=== PATIENT | male | born 1930 | race Caucasian/White ===

== ENCOUNTER 2017-02-07 12:52 | Inpatient (IN) | payer MEDICARE ==
--- NOTE | 2017-02-07 13:14 | ED ---
General Adult HPI - General Chief complaint: Neuro Symptoms/Deficit Stated complaint: poss TIA Time Seen by Provider: 02/07/17 13:00 Source: family, RN notes reviewed Mode of arrival: wheelchair Limitations: no limitations - History of Present Illness Initial comments: This is an 86-year-old male who is brought in by his daughter. Patient was having expressive aphasia starting at 12:30 last time he was seen normal was 9: 30. Daughter states that his symptoms have gotten considerably better at this time. But a timeout was done interviewing the patient daughter stated the patient was back to his neurologic baseline. Patient denies any headache patient denies numbness weakness. Patient denies any chest pain palpitations difficulty breathing shortest breath per patient denies any numbness weakness. Patient denies any recent fever chills or cough. Patient denies abdominal pain patient denies nausea vomiting diarrhea. - Related Data Home Medications Medication Instructions Recorded Confirmed No Known Home Medications [No 02/07/17 02/07/17 Known Home Medications] Allergies Allergy/AdvReac Type Severity Reaction Status Date / Time No Known Allergies Allergy Verified 02/07/17 13:38 Review of Systems ROS Statement: Those systems with pertinent positive or pertinent negative responses have been documented in the HPI. ROS Other: All systems not noted in ROS Statement are negative. Past Medical History Past Medical History: Dementia, Deep Vein Thrombosis (DVT) History of Any Multi-Drug Resistant Organisms: None Reported Past Surgical History: No Surgical Hx Reported Past Psychological History: No Psychological Hx Reported Smoking Status: Former smoker Past Alcohol Use History: Daily Past Drug Use History: None Reported General Exam - General Exam Comments Initial Comments: GENERAL: Patient is well-developed and well-nourished. Patient is nontoxic and well- hydrated and is in no acute distress. ENT: Neck is soft and supple. No significant lymphadenopathy is noted. Oropharynx is clear. Moist mucous membranes. Neck has full range of motion without eliciting any pain. EYES: The sclera were anicteric and conjunctiva were pink and moist. Extraocular movements were intact and pupils were equal round and reactive to light. Eyelids were unremarkable. PULMONARY: Unlabored respirations. Good breath sounds bilaterally. No audible rales rhonchi or wheezing was noted. CARDIOVASCULAR: There is a regular rate and rhythm without any murmurs gallops or rubs. ABDOMEN: Soft and nontender with normal bowel sounds. No palpable organomegaly was noted. There is no palpable pulsatile mass. SKIN: Skin is clear with no lesions or rashes and otherwise unremarkable. NEUROLOGIC: Patient is alert and oriented and 2. Cranial nerves II through XII are grossly intact. Motor and sensory are also intact. Normal speech, volume and content. Symmetrical smile. Cerebellar exam grossly intact. MUSCULOSKELETAL: Normal extremities with adequate strength and full range of motion. No lower extremity swelling or edema. No calf tenderness. LYMPHATICS: No significant lymphadenopathy is noted PSYCHIATRIC: Normal psychiatric evaluation. Normal interpersonal interactions appears functionally intact in deals appropriately with others. No signs of depression. No signs of anxiety. Limitations: no limitations Course Vital Signs 02/07/17 02/07/17 02/07/17 12:55 13:45 13:49 Temperature 97.8 F Pulse Rate 72 64 Respiratory 20 18 Rate Blood Pressure 151/80 140/84 143/87 O2 Sat by Pulse 96 Oximetry 02/07/17 02/07/17 14:03 14:37 Temperature 97.6 F Pulse Rate 60 64 Respiratory 16 16 Rate Blood Pressure 137/84 154/77 O2 Sat by Pulse 95 95 Oximetry Medical Decision Making - Medical Decision Making EKG shows a normal sinus rhythm at [address] interval 146 QRS on a 14 QT interval 4:30 QTC is 440 per patient's EKG shows no ST segment elevation or depression there is no T-wave abnormalities noted. Computed tomography scan showed no acute normalities. I spoke with the neuro interventional list he wanted Keppra 1000 iv wanted a liter of fluid aspirin and Lipitor all of which were done. I also ordered a CT on his instruction and he read the CTA is normal. I spoke with Dr. Desai he agreed to admit the patient admitted the patient I wrote admitting orders. I consult the neurology - Lab Data Result diagrams: 02/07/17 14:00 02/07/17 14:00 Lab Results 02/07/17 02/07/17 02/07/17 Range/Units 13:36 13:37 14:00 WBC (3.8-10.6) k/uL RBC (4.30-5.90) m/uL Hgb (13.0-17.5) gm/dL Hct (39.0-53.0) % MCV (80.0-100.0) fL MCH (25.0-35.0) pg MCHC (31.0-37.0) g/dL RDW (11.5-15.5) % Plt Count (150-450) k/uL Neutrophils % % Lymphocytes % % Monocytes % % Eosinophils % % Basophils % % Neutrophils # (1.3-7.7) k/uL Lymphocytes # (1.0-4.8) k/uL Monocytes # (0-1.0) k/uL Eosinophils # (0-0.7) k/uL Basophils # (0-0.2) k/uL PT (9.0-12.0) sec INR (<1.1) APTT (22.0-30.0) sec Sodium (137-145) mmol/L Potassium (3.5-5.1) mmol/L Chloride (98-107) mmol/L Carbon Dioxide (22-30) mmol/L Anion Gap mmol/L BUN (9-20) mg/dL Creatinine (0.66-1.25) mg/dL Est GFR (MDRD) Af Amer (>60 ml/min/1.73 sqM) Est GFR (MDRD) Non-Af (>60 ml/min/1.73 sqM) Glucose (74-99) mg/dL POC Glucose (mg/dL) <20 L 91 (75-99) mg/dL POC Glu Trimming Operator ID Bowling, Liliam Bowling, Liliam Calcium (8.4-10.2) mg/dL Total Bilirubin (0.2-1.3) mg/dL AST (17-59) U/L ALT (21-72) U/L Alkaline Phosphatase (38-126) U/L Total Creatine Kinase 322 H (55-170) U/L CK-MB (CK-2) 6.0 H* (0.0-2.4) ng/mL CK-MB (CK-2) Rel Index 1.9 Troponin I <0.012 (0.000-0.034) ng/mL Total Protein (6.3-8.2) g/dL Albumin (3.5-5.0) g/dL Serum Alcohol mg/dL 02/07/17 02/07/17 02/07/17 Range/Units 14:00 14:00 14:00 WBC 5.6 (3.8-10.6) k/uL RBC 4.45 (4.30-5.90) m/uL Hgb 13.9 (13.0-17.5) gm/dL Hct 41.3 (39.0-53.0) % MCV 92.8 (80.0-100.0) fL MCH 31.2 (25.0-35.0) pg MCHC 33.6 (31.0-37.0) g/dL RDW 13.7 (11.5-15.5) % Plt Count 219 (150-450) k/uL Neutrophils % 52 % Lymphocytes % 32 % Monocytes % 7 % Eosinophils % 5 % Basophils % 1 % Neutrophils # 2.9 (1.3-7.7) k/uL Lymphocytes # 1.8 (1.0-4.8) k/uL Monocytes # 0.4 (0-1.0) k/uL Eosinophils # 0.3 (0-0.7) k/uL Basophils # 0.1 (0-0.2) k/uL PT 10.4 (9.0-12.0) sec INR 1.0 (<1.1) APTT 22.5 (22.0-30.0) sec Sodium 141 (137-145) mmol/L Potassium 4.1 (3.5-5.1) mmol/L Chloride 108 H (98-107) mmol/L Carbon Dioxide 25 (22-30) mmol/L Anion Gap 8 mmol/L BUN 23 H (9-20) mg/dL Creatinine 1.09 (0.66-1.25) mg/dL Est GFR (MDRD) Af Amer >60 (>60 ml/min/1.73 sqM) Est GFR (MDRD) Non-Af >60 (>60 ml/min/1.73 sqM) Glucose 98 (74-99) mg/dL POC Glucose (mg/dL) (75-99) mg/dL POC Glu Trimming Operator ID Calcium 9.3 (8.4-10.2) mg/dL Total Bilirubin 0.7 (0.2-1.3) mg/dL AST 31 (17-59) U/L ALT 30 (21-72) U/L Alkaline Phosphatase 53 (38-126) U/L Total Creatine Kinase (55-170) U/L CK-MB (CK-2) (0.0-2.4) ng/mL CK-MB (CK-2) Rel Index Troponin I (0.000-0.034) ng/mL Total Protein 6.7 (6.3-8.2) g/dL Albumin 3.8 (3.5-5.0) g/dL Serum Alcohol <10 mg/dL Disposition Clinical Impression: Cerebrovascular accident Disposition: ADMITTED IP TO THIS HOSP Referrals: Rancho Summers MD [Primary Care Provider] - 1-2 days Time of Disposition: 15:13
[2017-02-07 13:40] LABS: Glucose,Whole Blood 91 mg/dL (75-99)
[2017-02-07 13:40] LABS: Glucose,Whole Blood <20 mg/dL (75-99)
--- NOTE | 2017-02-07 14:00 | CT ---
EXAMINATION TYPE: CT brain wo con DATE OF EXAM: 02/07/2017 1:38 PM COMPARISON: MRI brain 31 October 2015, CT facial bones 22 March 2013 HISTORY: Neuro deficits CT DLP: 1072.30 mGycm Automated exposure control for dose reduction was used. FINDINGS: There is no acute intracranial hemorrhage, mass effect, or midline shift identified. The ventricles and sulci are within normal limits in size. Periventricular white matter shows patchy low attenuatio n compatible with patient's demyelinating disease seen on previous exam. Cerebral vascular calcificat ions are present. High density within the posterior maxillary sinus on the left is unerupted tooth. T he globes are intact and the visualized mastoid air cells are clear. IMPRESSION: No acute abnormality is evident, follow-up as indicated. Findings in the left maxillary s inus are stable.
[2017-02-07] MEDS ORDERED: RX INFO: IV CONTRAST WAS GIVEN 1 EACH MISC MISCELLANE PRN (14:05)
[2017-02-07] MEDS ORDERED: levETIRAcetam IV 1,000 MG in SALINE 1 100ML.BAG IVPB STA (14:08)
[2017-02-07] MEDS ORDERED: SODIUM CHLORIDE 0.9% 1,000 ML IV ONE (14:08)
[2017-02-07 14:15] LABS: Basophils # (A) 0.1 k/uL (0-0.2); Basophils % (A) 1 %; CH 32.1; CHCM 34.7; Eosinophils # (A) 0.3 k/uL (0-0.7); Eosinophils % (A) 5 %; HCT 41.3 % (39.0-53.0); HDW 2.65; HGB 13.9 gm/dL (13.0-17.5); Luc # (Auto) 0.21; Luc % (Auto) 4; Lymphocytes # (A) 1.8 k/uL (1.0-4.8); Lymphocytes % (A) 32 %; MCH 31.2 pg (25.0-35.0); MCHC 33.6 g/dL (31.0-37.0); MCV 92.8 fL (80.0-100.0); Mean Platelet Volume 6.6; Monocytes # (A) 0.4 k/uL (0-1.0); Monocytes % (A) 7 %; Neutrophils # (A) 2.9 k/uL (1.3-7.7); Neutrophils % (A) 52 %; RBC 4.45 m/uL (4.30-5.90); RDW 13.7 % (11.5-15.5); WBC 5.6 k/uL (3.8-10.6); WBC (Perox) 5.85
[2017-02-07 14:26] LABS: ALT 30 U/L (21-72); AST 31 U/L (17-59); Alcohol <10 mg/dL; Alkaline Phosphatase 53 U/L (38-126); Anion Gap 8 mmol/L; Blood Urea Nitrogen 23 mg/dL (9-20); Calcium 9.3 mg/dL (8.4-10.2); Carbon Dioxide 25 mmol/L (22-30); Chloride 108 mmol/L (98-107); Glucose 98 mg/dL (74-99); Non-African American GFR(MDRD) >60 (>60 ml/min/1.73 sqM); Potassium 4.1 mmol/L (3.5-5.1); Sodium 141 mmol/L (137-145); Total Bilirubin 0.7 mg/dL (0.2-1.3); Total Protein 6.7 g/dL (6.3-8.2)
[2017-02-07 14:31] LABS: Partial Thromboplastin Time 22.5 sec (22.0-30.0); Prothrombin Time 10.4 sec (9.0-12.0)
[2017-02-07 14:40] LABS: Creatine Kinase 322 U/L (55-170)
[2017-02-07 14:52] LABS: Troponin I <0.012 ng/mL (0.000-0.034)
--- NOTE | 2017-02-07 14:55 | XR ---
EXAMINATION TYPE: XR chest 2V DATE OF EXAM: 02/07/2017 2:48 PM COMPARISON: Prior chest x-ray 16 January 2013 HISTORY: Altered mental status, weakness TECHNIQUE: Frontal and lateral views of the chest are obtained. FINDINGS: There is no focal air space opacity, pleural effusion, or pneumothorax seen. Prominent jamee ng volume may be indicative of underlying COPD. The cardiac silhouette size is enlarged. There are ov erlying cardiac leads. The aorta is dense. The osseous structures are intact. IMPRESSION: Cardiomegaly. Patient is rotated which may accentuate the appearance.
[2017-02-07] MEDS ORDERED: ATORVASTATIN 80 MG TAB PO STA (15:01)
[2017-02-07] MEDS ORDERED: ASPIRIN 81 MG CHEW PO STA (15:01)
--- NOTE | 2017-02-07 15:24 | CT ---
CTA head and neck HISTORY: Speech difficulty Helical acquisition from the thoracic aorta through the brain following dynamic administration of 65 cc Omni 350 IV. Three-dimensional reconstructions performed on an alternate workstation Transverse aorta, left and right common carotid, left and right subclavian, and innominate arteries a re patent. Internal and external carotid arteries are patent, as no significant stenosis of the proxi mal internal carotid arteries. Atheromatous changes are present at the carotid bifurcations. Vertebra l arteries are also patent. The [place] is patent. Anterior and posterior circulation is noted, vertebral arteries are c odominant. There is no evident aneurysm, no filling defect. No stenosis or vascular malformation. Emphysematous changes are present in the upper lobes, there is likely some pulmonary fibrosis. Degene rative disc changes in the visualized spine. IMPRESSION: No abnormality evident to account for patient's symptoms.
[2017-02-07 16:43] VITALS: BMI 24.3
--- NOTE | 2017-02-07 16:56 | US ---
EXAMINATION TYPE: US carotid duplex BILAT DATE OF EXAM: 02/07/2017 3:41 PM COMPARISON: Prior carotid Doppler 21 October 2015 CLINICAL HISTORY: Stenosis. possible TIA, patient having difficulty speaking EXAM MEASUREMENTS: RIGHT: Peak Systolic Velocity (PSV) cm/sec ----- Right CCA: 58.1 ----- Right ICA: 72.3 ----- Right ECA: 66.2 ICA/CCA ratio: 1.2 RIGHT: End Diastole cm/sec ----- Right CCA: 16.4 ----- Right ICA: 20.9 ----- Right ECA: 8.6 LEFT: Peak Systolic Velocity (PSV) cm/sec ----- Left CCA: 61.0 ----- Left ICA: 73.5 ----- Left ECA: 60.1 ICA/CCA ratio: 1.2 LEFT: End Diastole cm/sec ----- Left CCA: 13.9 ----- Left ICA: 26.3 ----- Left ECA: 6.0 VERTEBRALS (direction of flow): Right Vertebral: Antegrade Left Vertebral: Antegrade No significant stenosis seen, no elevated velocities, bilateral plaque noted Grayscale, color Doppler, spectral Doppler imaging performed of the carotid arteries IMPRESSION: No hemodynamic significant stenosis of the proximal internal carotid arteries bilaterall y by Doppler criteria, an indirect measurement of carotid stenosis
[2017-02-07] MEDS ORDERED: QUEtiapine 25 MG TAB PO SCH (21:30)
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
[2017-02-07] MEDS ORDERED: HALOPERIDOL LACTATE 5 MG/ML 1 ML VIAL IM ONE (22:00)
[2017-02-08] MEDS: HALOPERIDOL LACTATE 5 MG/ML 1 ML VIAL IVP PRN ×2 (01:21→19:26)
[2017-02-08 07:07] LABS: Cholesterol 211 mg/dL (<200); HDL Cholesterol 62 mg/dL (40-60); Triglycerides 84 mg/dL (<150)
--- NOTE | 2017-02-08 07:38 | MR ---
EXAMINATION TYPE: MR brain wo con DATE OF EXAM: 02/08/2017 7:00 AM COMPARISON: MRI brain 10/31/2015, CT brain 02/07/2017 HISTORY: Acute expressive aphasia CONTRAST: Performed utilizing 0 mL intravenous MultiHance gadolinium contrast. TECHNIQUE: Multiplanar, multiecho imaging on a 3.0 Yara magnet is performed through the brain. Stud y is performed within 24 hours of arrival to the hospital. Fast protocol was utilized due to patient condition. The craniovertebral junction is normal. The pituitary is normal. Diffusion-weighted imaging is performed. No abnormal hyperintensity is present to suggest an acute i ntracranial infarct or acute ischemic change. There are confluent areas of periventricular white matter hyper intensity, compatible with chronic wh ite matter ischemic changes. These areas appear stable from 10/31/2015. Ventricles and sulci are prominent for the patient age. IMPRESSIONS: 1. Atrophy with periventricular and deep white matter ischemic type changes. 2. Findings appear stable from MRI 10/31/2015.
[2017-02-08] MEDS: ATORVASTATIN 80 MG TAB PO SCH (08:14)
[2017-02-08] MEDS: ASPIRIN 325 MG TAB PO SCH (08:14)
--- NOTE | 2017-02-08 17:15 | HP ---
DATE OF ADMISSION: Patient is a very pleasant 86-year-old gentleman; unable to provide much history for me. Patient is alert and oriented times close to 3. He was sent in here because of his speech and language problems, although his speech is okay now. He is not able to articulate very well because of absence of his dentures, he says. Patient apparently was mixing and jumbling his words ( ) because of which patient was sent in here. Patient had a CT angiogram and CT of the brain; negative for any acute problems. MRI was obtained which did not show any significant abnormality, either. Patient although is not clear why he is here. He believes he had a stroke, because of which he was admitted to hospital. MRI showed atrophy with periventricular white matter ischemic changes which appeared to be chronic. Patient appears to have dementia which appears to be moderate in nature. Will get a mini-mental status examination. Apparently patient is quite weak with generalized weakness, although his strength in bilateral lower extremities is equal. No focal neurological deficits were appreciated. REVIEW OF SYSTEMS: CONSTITUTIONAL: No fever, no malaise, no fatigue. HEENT: No recent visual problems or hearing problems. Denied any sore throat. CARDIOVASCULAR: No chest pain, orthopnea, PND, no palpitations, no syncope. PULMONARY: No shortness of breath, no cough, no hemoptysis. GASTROINTESTINAL: No diarrhea, no nausea, no vomiting, no abdominal pain. Normoactive bowel sounds. NEUROLOGICAL: As described in HPI. HEMATOLOGICAL: Denies any bleeding or petechiae. GENITOURINARY: Denies any burning micturition, frequency, or urgency. MUSCULOSKELETAL/RHEUMATOLOGICAL: Denies any joint pain, swelling, or any muscle pain. ENDOCRINE: Denies any polyuria or polydipsia. The rest of the 14 point review of systems is negative. PAST MEDICAL HISTORY: 1. Dementia. 2. DVT in the past, not on anticoagulation. 3. Patient had part of a finger amputated. SOCIAL HISTORY: Denied any smoking, alcohol abuse or any drug abuse. HOME MEDICATIONS: None. ALLERGIES: NONE. PHYSICAL EXAMINATION: VITAL SIGNS: Temperature 97.1, pulse of 65, respiratory rate of 16, blood pressure 126/74. Saturating at 94% on room air. GENERAL: The patient is alert and oriented x3, not in any acute distress. Well developed, well nourished. HEENT: Pupils are round and equally reacting to light. EOMI. No scleral icterus. No conjunctival pallor. Normocephalic, atraumatic. No pharyngeal erythema. No thyromegaly. CARDIOVASCULAR: S1 and S2 present. No murmurs, rubs, or gallops. PULMONARY: Chest is clear to auscultation, no wheezing or crackles. ABDOMEN: Soft, nontender, nondistended, normoactive bowel sounds. No palpable organomegaly. MUSCULOSKELETAL: No joint swelling or deformity. EXTREMITIES: No cyanosis, clubbing, or pedal edema. NEUROLOGICAL: Gross neurological examination did not reveal any focal deficits. SKIN: No rashes. LABORATORY DATA: CBC, CMP are essentially within normal limits. Patient's LDL is elevated to 132. Patient is on atorvastatin at this point of time. ASSESSMENT AND PLAN: 1. Expressive aphasia, although workup is negative, including MRI; unsure of the exact etiology; may have had a transient ischemic attack. Further evaluation as per Neurology. 2. Generalized weakness and dementia. Get PT and OT evaluation. Make sure patient does not have any rehab requirements. 3. 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 Patient will benefit from aspirin and a statin. Appears to have moderate dementia. Will get a mini-mental status exam. 4. Hyperlipidemia. Patient will be followed by Dr. Rancho Summers from tomorrow.
--- NOTE | 2017-02-08 22:46 | P.PN ---
Subjective This patient is an 86 year old male being evaluated for possible TIA vs. stroke. He is resting and denies any new symptoms. He was able to get MRI Brain today and it is negative for any acute stroke. MRI revealed atrophy with periventricular deep white matter ischemic changes. This would be consistent for the patient's age. No evidence of acute stroke was noted. Patient seems to be doing better overall since admission. Patient does have history of underlying dementia which is felt to be moderate in degree. His [place] history suggests probable TIA. Would recommend ongoing current treatment for his TIA. His overall prognosis at this time remains guarded. We will continue close neurological follow-up for the patient. His overall prognosis at this time remains guarded. Objective - Vital Signs Vital signs: Vital Signs Temp 96.7 F L 02/08/17 16:00 Pulse 62 02/08/17 16:00 Resp 16 02/08/17 16:00 BP 160/90 02/08/17 16:00 Pulse Ox 96 02/08/17 16:00 Intake & Output 02/08/17 02/08/17 02/09/17 06:59 18:59 06:59 Intake Total 200 500 Output Total 1 Balance 199 500 Intake: Oral 200 500 Output: Urine 1 Other: Voiding Method Toilet Toilet # Voids 1 3 - Exam Physical Examination: PHYSICAL EXAMINATION: Patient is resting comfortably in bed. VITAL SIGNS: Blood pressure is [160/90]. Heart rate is [62]. Respiration is [16] . Temperature is [97.0]. HEENT: Head is atraumatic, neck is supple, there were no carotid bruits. CHEST: Lungs are clear to auscultation and percussion. CARDIAC: S1, S2 normal rate and rhythm. There is no murmur. ABDOMEN: Soft and nontender. Bowel sounds are present. EXTREMITIES: There is no pedal edema. Peripheral pulses are present. Neurological examination: Patient has a nonfocal neurological examination today. Exam remains unchanged from yesterday. - Labs CBC & Chem 7: 02/07/17 14:00 02/07/17 14:00 Labs: Abnormal Lab Results - Last 24 Hours (Table) 02/08/17 Range/Units 05:58 Cholesterol 211 H (<200) mg/dL LDL Cholesterol, Calc 132 H (0-99) mg/dL HDL Cholesterol 62 H (40-60) mg/dL Assessment and Plan (1) Left acute arterial ischemic stroke, MCA (middle cerebral artery) Status: Acute Code(s): I63.512 - CEREB INFRC D/T UNSP OCCLS OR STENOS OF LEFT MID CEREB ART (2) Expressive aphasia Status: Acute Code(s): R47.01 - APHASIA (3) Acute encephalopathy Status: Acute Code(s): G93.40 - ENCEPHALOPATHY, UNSPECIFIED (4) History of dementia Status: Acute Code(s): Z86.59 - PERSONAL HISTORY OF OTHER MENTAL AND BEHAVIORAL DISORDERS Plan: This patient is a 86-year-old right-handed white male admitted to hospital with episode of expressive aphasia. He was brought into the ER and was evaluated by Dr. Castellanos. His NIH stroke scale was 2.0. Interventional neurologist reviewed his case over the stroke robotic including his CT angiogram and CT of the brain both of which are negative. No intervention was recommended. He was not a TPA candidate. Patient was admitted to hospital for further stroke workup. His neurological exam reveals him to have mild expressive aphasia with confusion. We are recommending an MRI of the brain for further evaluation. Patient was able to complete MRI of the brain today. MRI reveals atrophy with periventricular white matter changes. No evidence of acute stroke. He has had an episode of expressive aphasia on admission which is now resolved. Most likely he did have some form of TIA. We will continue close neurological follow -up with the patient. His overall prognosis at this time remains guarded. His overall prognosis at this time remains very guarded. We will continue close neurological follow-up for this patient during this admission.
[2017-02-09] MEDS: ASPIRIN 325 MG TAB PO SCH (07:58)
[2017-02-09] MEDS: ATORVASTATIN 80 MG TAB PO SCH (07:59)
--- NOTE | 2017-02-09 15:26 | P.PN ---
Subjective Patient resting in bed. Feeling at bedside. Patient remains confused. Has had OT PT evaluation. Awaiting approval from insurance company for transferred to [facility] for rehab. Objective - Vital Signs Vital signs: Vital Signs Temp 98.1 F 02/09/17 07:58 Pulse 97 02/09/17 07:58 Resp 16 02/09/17 08:00 BP 144/86 02/09/17 07:58 Pulse Ox 94 L 02/09/17 07:58 Intake & Output 02/08/17 02/09/17 02/09/17 18:59 06:59 18:59 Intake Total 500 20 Output Total 300 Balance 500 -280 Weight 76.3 kg Intake: IV 20 0.9% NS FLUSH 10 mL 20 Oral 500 Output: Urine 300 Other: Voiding Method Toilet Toilet Toilet # Voids 3 - Constitutional General appearance: Present: mild distress - EENT Eyes: Present: PERRLA ENT: Present: hard of hearing Ears: bilateral: normal - Respiratory Respiratory: bilateral: CTA - Cardiovascular Rhythm: regular - Integumentary Integumentary: Present: normal - Musculoskeletal Musculoskeletal: Present: generalized weakness - Psychiatric Psychiatric Comment(s): Patient remains confused the time and place. No short-term memory - Labs CBC & Chem 7: 02/07/17 14:00 02/07/17 14:00 - Imaging and Cardiology CT Scan - head: report reviewed MRI - head: report reviewed Assessment and Plan Plan: Assessment expressive aphasia TIA Gen. is weakness and dementia vascular hyperlipidemia Plan transferred to [facility] for rehab continue consultation with neurology
--- NOTE | 2017-02-09 20:02 | P.PN ---
Subjective This patient is an 86 year old male being evaluated for possible TIA vs. stroke. He is resting and denies any new symptoms. He was able to get MRI Brain today and it is negative for any acute stroke. MRI revealed atrophy with periventricular deep white matter ischemic changes. This would be consistent for the patient's age. No evidence of acute stroke was noted. Patient seems to be doing better overall since admission. Patient does have history of underlying dementia which is felt to be moderate in degree. His history suggests probable TIA. Would recommend ongoing current treatment for his TIA. Patient remains somewhat confused today. He is being evaluated for possible discharge to ECF tomorrow when the bed is available. Apparently plans are being made for [facility] for subacute rehab. Patient's speech has improved since admission. 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 We will continue to follow his progress closely. His overall prognosis at this time remains guarded. We will await possible transferred to ECF in the next few days. Objective - Vital Signs Vital signs: Vital Signs Temp 0 F L 02/09/17 18:23 Pulse 76 02/09/17 16:00 Resp 19 02/09/17 16:00 BP 135/89 02/09/17 15:38 Pulse Ox 92 L 02/09/17 15:38 Intake & Output 02/09/17 02/09/17 02/10/17 06:59 18:59 06:59 Intake Total 20 Output Total 300 Balance -280 Weight 76.3 kg Intake: IV 20 0.9% NS FLUSH 10 mL 20 Output: Urine 300 Other: Voiding Method Toilet Toilet # Voids 1 - Exam Physical Examination: PHYSICAL EXAMINATION: Patient is resting comfortably in bed. VITAL SIGNS: Blood pressure is [135/89]. Heart rate is [76]. Respiration is [19] . Temperature is [97.5]. HEENT: Head is atraumatic, neck is supple, there were no carotid bruits. CHEST: Lungs are clear to auscultation and percussion. CARDIAC: S1, S2 normal rate and rhythm. There is no murmur. ABDOMEN: Soft and nontender. Bowel sounds are present. EXTREMITIES: There is no pedal edema. Peripheral pulses are present. Neurological examination: Patient has a nonfocal neurological examination today. Exam remains unchanged from yesterday. Patient does follow simple commands. His memory and intellectual functions are impaired. - Labs CBC & Chem 7: 02/07/17 14:00 02/07/17 14:00 Assessment and Plan (1) Left acute arterial ischemic stroke, MCA (middle cerebral artery) Status: Acute Code(s): I63.512 - CEREB INFRC D/T UNSP OCCLS OR STENOS OF LEFT MID CEREB ART (2) Expressive aphasia Status: Acute Code(s): R47.01 - APHASIA (3) Acute encephalopathy Status: Acute Code(s): G93.40 - ENCEPHALOPATHY, UNSPECIFIED (4) History of dementia Status: Acute Code(s): Z86.59 - PERSONAL HISTORY OF OTHER MENTAL AND BEHAVIORAL DISORDERS Plan: This patient is a 86-year-old right-handed white male admitted to hospital with episode of expressive aphasia. He was brought into the ER and was evaluated by Dr. Castellanos. His NIH stroke scale was 2.0. Interventional neurologist reviewed his case over the stroke robotic including his CT angiogram and CT of the brain both of which are negative. No intervention was recommended. He was not a TPA candidate. Patient was admitted to hospital for further stroke workup. His neurological exam reveals him to have mild expressive aphasia with confusion. We are recommending an MRI of the brain for further evaluation. Patient was able to complete MRI of the brain today. MRI reveals atrophy with periventricular white matter changes. No evidence of acute stroke. He has had an episode of expressive aphasia on admission which is now resolved. Most likely he did have some form of TIA. Patient is being considered for discharge to subacute rehab at [facility]. We will continue close neurological follow-up with the patient. His overall prognosis at this time remains guarded. We will continue close neurological follow-up for this patient during this admission.
[2017-02-10 08:28] VITALS: BP 128/93; PULSE 92; RESP 16; TEMP 95.3
[2017-02-10] MEDS: ATORVASTATIN 80 MG TAB PO SCH (08:37)
[2017-02-10] MEDS: ASPIRIN 325 MG TAB PO SCH (08:37)
--- NOTE | 2017-02-10 09:18 | EEG ---
DATE OF SERVICE: 02/08/[address] Desai. INTERPRETING PHYSICIAN: Dr. Domitila Rogers. INDICATIONS FOR EXAMINATION: This patient is an 86-year-old male admitted with episodes of expressive aphasia and possible stroke. The patient has history of underlying dementia. AGE: 86Y EEG FINDINGS: A routine 21-channel, awake digital EEG recording was accomplished utilizing the 10 to 20 international system with bipolar and referential montages. The background activity in the most alert resting state consists of a low to medium amplitude, poorly developed and poorly sustained 5 to 6 Hz activity over the posterior head regions. This posterior rhythm attenuates to eye opening. There is a small amount of low amplitude 18 to 20 Hz beta activity seen maximally over the anterior head regions. Muscle and movement artifact was observed on a few occasions during the tracing. Hyperventilation was not performed. Photic stimulation at flash frequencies of 2 to 30 Hz produced a good symmetrical occipital driving response. No epileptiform discharges were seen. IMPRESSION: This EEG is moderately abnormal in a diffuse fashion due to slowing of the EEG background. The EEG failed to reveal any focal, lateralized or epileptiform abnormalities. Clinical correlation is recommended.
--- NOTE | 2017-02-10 11:18 | P.DS ---
Providers Date of admission: 02/07/17 15:15 Expected date of discharge: 02/10/17 Attending physician: Rancho Summers Primary care physician: Rancho Summers Hospital Course: -86year-old male was brought to the emergency room family with expressive dysphasia muscle weakness was evaluated by neurology and PT OT plan is for transferred to [facility] for rehab. CT of the brain MRI of the brain showed no acute changes area speech is improved but continues to have weakness and confusion Assessment Dysphasia TIA Generalized weakness Dementia vascular Hyperlipidemia Plan family will take to [facility] for rehabilitation Plan - Discharge Summary Discharge Medication List Aspirin 325 mg PO DAILY #0 tab 02/09/17 [Rx] Atorvastatin [Lipitor] 80 mg PO DAILY #0 tab 02/09/17 [Rx] Follow up Appointment(s)/Referral(s): Rancho Summers MD [Primary Care Provider] - 1-2 days Discharge Disposition: TRANSFER TO SNF/ECF
--- NOTE | 2017-02-10 16:14 | ECHOF ---
Referral Reason:CVA MEASUREMENTS -------- HEIGHT: 172.7 cm WEIGHT: 72.6 kg BP: 125/72 IVSd: 0.9 cm (0.6 - 1.1) LVIDd: 3.7 cm (3.9 - 5.3) LVPWd: 1.1 cm (0.6 - 1.1) IVSs: 1.9 cm LVIDs: 1.7 cm LVPWs: 1.6 cm LAESV Index (A-L): 10.80 ml/m Ao Diam: 3.4 cm (2.0 - 3.7) AV Cusp: 1.5 cm (1.5 - 2.6) MV E Rahat: 0.52 m/s MV DecT: 258 ms MV A Rahat: 0.71 m/s MV E/A Ratio: 0.73 RAP: 5.00 mmHg RVSP: 38.84 mmHg FINDINGS -------- Frequent ventricular premature beats. This was a technically adequate study. Left ventricular wall thickness is normal. Overall left ventricular systolic function is normal with, an EF between 60 - 65 %. The right ventricle is normal in size and function. Normal LA size by volume 22+/-6 ml/m2. The right atrium is normal in size. Aortic valve is trileaflet and is mildly thickened. There is no evidence of aortic regurgitation. There is no evidence of aortic stenosis. Mild mitral annular calcification present. There is trace mitral regurgitation. Trace tricuspid regurgitation present. The right ventricular systolic pressure, as measured by Doppler, is 38.84mmHg. The pulmonic valve was not well visualized. The aortic root size is normal. Echo free space may represent effusion or a pericardial fat pad. There is no pericardial effusion. CONCLUSIONS -------- 1. Frequent ventricular premature beats. 2. Echo free space may represent effusion or a pericardial fat pad. 3. There is no pericardial effusion. 4. Overall left ventricular systolic function is normal with, an EF between 60 - 65 %. 5. Aortic valve is trileaflet and is mildly thickened. 6. Mild mitral annular calcification present. 7. There is trace mitral regurgitation. 8. Trace tricuspid regurgitation present. 9. The right ventricular systolic pressure, as measured by Doppler, is 38.84mmHg. 10. The pulmonic valve was not well visualized. 11. The aortic root size is normal. CLINICAL PHYSICIAN ASSISTANT: Jessica Chakraborty RDCS
== END 2017-02-10 12:30 | DRG 884 ==
LOC: SUPCPDRO 12:52 → EC 12:52 → 6SEL 15:15 → 4MS4W 02-09 10:27
PROVIDERS: ADMIT Family Medicine; ATTEND Family Medicine
DX: F01.50 Vascular dementia, unspecified severity, without behavioral disturbance, psychotic disturbance, mood disturbance, and anxiety (principal); G93.40 Encephalopathy, unspecified; G45.9 Transient cerebral ischemic attack, unspecified; E78.5 Hyperlipidemia, unspecified; R47.02 Dysphasia; Z87.891 Personal history of nicotine dependence; Z89.029 Acquired absence of unspecified finger(s)
CPT/HCPCS: 36415; 70450; 70496; 70498; 70551; 71020; 80053; 80061; 80320; 82550; 82553; 84484; 85025; 85610; 85730; 93005; 93306; 93880; 95819; 96360; 99285

== ENCOUNTER 2018-10-13 02:12 | Emergency (ER) | payer MEDICARE, OTHER ==
[2018-10-13] MEDS ORDERED: SODIUM CHLORIDE 0.9% 500 ML 500 ML IV SCH (03:15)
[2018-10-13 03:43] LABS: Basophils % (A) 0 %; Eosinophils # (A) 0.1 k/uL (0-0.7); Eosinophils % (A) 1 %; HGB 13.1 gm/dL (13.0-17.5); Lymphocytes # (A) 0.8 k/uL (1.0-4.8); Lymphocytes % (A) 8 %; MCH 31.8 pg (25.0-35.0); MCHC 34.4 g/dL (31.0-37.0); MCV 92.4 fL (80.0-100.0); Mean Platelet Volume 6.9; Monocytes # (A) 0.8 k/uL (0-1.0); Monocytes % (A) 9 %; Neutrophils # (A) 7.8 k/uL (1.3-7.7); Neutrophils % (A) 81 %; Platelet Count 203 k/uL (150-450); RBC 4.11 m/uL (4.30-5.90); RDW 13.7 % (11.5-15.5); WBC 9.6 k/uL (3.8-10.6)
[2018-10-13 03:45] LABS: Appearance,Urine Clear (Clear); Bilirubin,Urine Negative (Negative); Blood,Urine Negative (Negative); Color,Urine Yellow; Glucose,Urine (UA) Negative (Negative); Ketones,Urine Negative (Negative); Leukocyte Esterase,Urine Negative (Negative); Nitrite,Urine Negative (Negative); PH, Urine 5.5 (5.0-8.0); Protein,Urine Trace (Negative); Specific Gravity,Urine 1.018 (1.001-1.035); Urobilinogen,Urine <2.0 mg/dL (<2.0)
[2018-10-13 03:57] LABS: Albumin 3.8 g/dL (3.5-5.0); Calcium 9.1 mg/dL (8.4-10.2); Potassium 4.2 mmol/L (3.5-5.1); Total Bilirubin 0.8 mg/dL (0.2-1.3); Total Protein 6.5 g/dL (6.3-8.2)
--- NOTE | 2018-10-13 04:03 | XR ---
EXAMINATION TYPE: XR chest 2V DATE OF EXAM: 10/13/2018 COMPARISON: 02/07/2017 HISTORY: Altered mental status TECHNIQUE: Frontal and lateral views of the chest are obtained. FINDINGS: There is some atelectasis at the left lung base. There is no heart failure. There is mild coarsening of interstitial markings. Bony thorax appears intact. I see no definite pleural effusion. IMPRESSION: Fibrotic changes and atelectasis at the lung bases is worse than old exam. No heart fail ure seen.
[2018-10-13 04:10] LABS: INR 0.9 (<1.2); Prothrombin Time 10.2 sec (9.0-12.0)
--- NOTE | 2018-10-13 04:11 | CT ---
EXAMINATION TYPE: CT brain angela wo con DATE OF EXAM: 10/13/2018 COMPARISON: 02/07/2017 HISTORY: Fall; Evaluate for trauma CT DLP: 1276.9 mGycm Automated exposure control for dose reduction was used. TECHNIQUE: CT scan of the head and cervical spine are performed without contrast. FINDINGS: There is diffuse cerebral atrophy. There is extensive patchy hypodensity in the periventr icular white matter. There is no mass effect nor midline shift. There is no sign of intracranial hemo rrhage. The calvarium is intact. There is some mucosal thickening in the ethmoid sinuses and fluid le tomy left maxillary sinus. I see no obvious facial fracture. Cervical vertebra have fairly normal alignment. There is degenerative disc space narrowing at C6-7 wi th spurring of the endplates. There is mild hypertrophic facet arthropathy. The skull base is intact. There is no evidence of cervical spine fracture. IMPRESSION: Cerebral atrophy and chronic small vessel ischemia.. Brain unchanged compared to old exam. No acute a bnormality. Spondylotic changes in the cervical spine. No fracture.
[2018-10-13 04:25] LABS: Partial Thromboplastin Time 20.3 sec (22.0-30.0)
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
[2018-10-13 05:37] VITALS: RESP 19
[2018-10-13 07:28] VITALS: BP 136/69; PULSE 72; TEMP 97.6
== END 2018-10-13 05:35 | disposition home or self-care (01) ==
LOC: EC 02:12
DX: R50.9 Fever, unspecified (principal); R41.82 Altered mental status, unspecified; F03.90 Unspecified dementia, unspecified severity, without behavioral disturbance, psychotic disturbance, mood disturbance, and anxiety; Z86.718 Personal history of other venous thrombosis and embolism; W06.XXXA Fall from bed, initial encounter
CPT/HCPCS: 36415; 70450; 71046; 72125; 80053; 81003; 83605; 85025; 85610; 85730; 87040; 87086; 87502; 96360; 99284

== ENCOUNTER 2020-11-06 05:05 | Observation (INO) | payer MEDICARE, OTHER ==
[2020-11-06] MEDS ORDERED: SODIUM CHLORIDE 0.9% 1,000 ML IV STA (05:08)
[2020-11-06] MEDS ORDERED: MORPHINE SULFATE 4 MG/ML SYRINGE IV STA (05:08)
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
[2020-11-06 06:07] LABS: Appearance,Urine Clear (Clear); Bilirubin,Urine Negative (Negative); Blood,Urine Negative (Negative); Color,Urine Yellow; Glucose,Urine (UA) Negative (Negative); Ketones,Urine Negative (Negative); Leukocyte Esterase,Urine Negative (Negative); Nitrite,Urine Negative (Negative); PH, Urine 6.5 (5.0-8.0); Protein,Urine Trace (Negative); Specific Gravity,Urine 1.022 (1.001-1.035); Urobilinogen,Urine <2.0 mg/dL (<2.0)
[2020-11-06 06:09] LABS: Basophils # (A) 0.1 k/uL (0-0.2); Basophils % (A) 1 %; Eosinophils # (A) 0.3 k/uL (0-0.7); Eosinophils % (A) 3 %; HCT 42.3 % (39.0-53.0); HGB 14.1 gm/dL (13.0-17.5); Lymphocytes # (A) 1.7 k/uL (1.0-4.8); Lymphocytes % (A) 16 %; MCH 31.8 pg (25.0-35.0); MCHC 33.5 g/dL (31.0-37.0); Mean Platelet Volume 7.1; Monocytes # (A) 0.6 k/uL (0-1.0); Monocytes % (A) 6 %; Neutrophils # (A) 7.5 k/uL (1.3-7.7); Neutrophils % (A) 73 %; Platelet Count 271 k/uL (150-450); RBC 4.45 m/uL (4.30-5.90); RDW 13.9 % (11.5-15.5); WBC 10.3 k/uL (3.8-10.6)
[2020-11-06 06:25] LABS: Albumin 3.7 g/dL (3.5-5.0); Calcium 9.3 mg/dL (8.4-10.2); Phosphorus 2.9 mg/dL (2.5-4.5); Potassium 4.6 mmol/L (3.5-5.1); Total Bilirubin 0.6 mg/dL (0.2-1.3); Total Protein 6.9 g/dL (6.3-8.2)
--- NOTE | 2020-11-06 07:23 | CT ---
EXAMINATION TYPE: CT abdomen pelvis w con DATE OF EXAM: 11/06/2020 COMPARISON: None INDICATION: Abdominal pain DLP: 942.3 mGycm, Automated exposure control for dose reduction was used. CONTRAST: 100 ml mL of Isovue 300. Study performed without Oral Contrast TECHNIQUE: Axial images were obtained from above the diaphragm to the pubic rami in the axial plane a t 5 mm thick sections. Reconstructed images are reviewed on the computer in the coronal plane. FINDINGS: Limited CT sections are obtained the lung bases. Mild bibasilar infiltrates are present likely on th e basis of atelectasis. Minimal bilateral pleural effusions are present. There is a moderate size hia thai hernia present.. CT ABDOMEN: Liver: Normal Spleen: Normal Pancreas: Normal Adrenal glands: The adrenal glands are normal. Gallbladder: Normal Kidneys: No masses are evident. No hydronephrosis is present. There is a 3.4 cm anterior left mid r enal cyst measuring 2 Hounsfield units. Tiny cortical renal cysts the anterior right kidney. Delayed images were obtained through the kidneys, which remain unremarkable. Aorta: Vascular calcification is within the aorta. Inferior vena cava: Normal. CT PELVIS: Other prominent small bowel loops containing fluid. Correlate for ileus. Multiple diverticuli within the sigmoid colon. Acute diverticulitis is not identified. Right inguinal hernia containing small bow el loops is present There are loops of bowel which are incompletely distended or lack oral contrast l imiting their evaluation. Appendix: Normal as visualized. Urinary bladder: Urinary bladder is decompressed causing limitation. There may be some wall thickenin g. Consider neurogenic bladder and cystitis in addition to artifact from nondistention Genitourinary structures: Prostate is prominent Osseous structures: No suspicious lytic or sclerotic lesions are evident. There appears to be an acut e fracture of T12 compression. Mild retropulsion of the superior posterior wall is evident. No spinal canal stenosis is evident. Couple of inguinal lymph nodes are present on the left. Scattered small lymph nodes are present in th e right inguinal region as well. IMPRESSIONS: 1. Acute compression deformity T12 with approximately 30% loss of mid vertebral body height. Minimal posterior superior wall displacement is present without spinal canal stenosis. 2. Diverticulosis without acute diverticulitis. 3. Ileus. 4. Small bilateral pleural effusions with adjacent right basilar atelectasis.
[2020-11-06] MEDS ORDERED: NALOXONE 0.4 MG/ML 1 ML VIAL IV PRN (08:19)
[2020-11-06] MEDS: SODIUM CHLORIDE 0.9% 1,000 ML IV SCH ×2 (09:23→20:06)
[2020-11-06] MEDS ORDERED: ACETAMINOPHEN TAB 325 MG TAB PO PRN (09:35)
[2020-11-06] MEDS ORDERED: MORPHINE CONC SOLN 10mg/0.5mL ORAL SYRG PO PRN (09:35)
[2020-11-06] MEDS: MORPHINE SULFATE 4 MG/ML SYRINGE IV PRN ×3 (14:06→23:41)
[2020-11-06] MEDS: LORazepam 0.5 MG TAB PO PRN ×2 (14:56→20:15)
[2020-11-06] MEDS: ASPIRIN 81 MG PO SCH (15:56)
[2020-11-06] MEDS: CITALOPRAM HYDROBROMIDE 10 MG TAB PO SCH (15:56)
--- NOTE | 2020-11-06 16:17 | P.GSCN ---
History of Present Illness Consult date: 11/06/20 Reason for Consult: Right inguinal hernia History of present illness: This is an 89-year-old male who was admitted through the hospital ER for right angle hernia. Patient has a large hiatal hernia containing small bowel. He has dementia is unable to give any significant medical history. Past Medical History Past Medical History: CVA/TIA, Dementia, Deep Vein Thrombosis (DVT), GERD/Reflux, Hyperlipidemia, Memory Impairment, Prostate Disorder, Thyroid Disorder Additional Past Medical History / Comment(s): Vascular dementia, DVT R leg, TIAs, tested covid + 08/30/20 asymptomatic, BPH, hypothyroid, numbness/tingling bottom of feet, diverticular disease, vitamin D deficiency, insomnia, weakness, FALLS frequently. Pt was in hospice but was taken out of hospice yesterday so he could be evaluated for R groin hernia/pain. History of Any Multi-Drug Resistant Organisms: None Reported Past Surgical History: No Surgical Hx Reported Additional Past Surgical History / Comment(s): Reattachment finger, 2012 cardiac cath, colonoscopy. Past Anesthesia/Blood Transfusion Reactions: No Reported Reaction, Motion Sickness Additional Past Anesthesia/Blood Transfusion Reaction / Comm: no history of transfusion. Smoking Status: Former smoker - Past Family History Father Additional Family Medical History / Comment(s): Father was an alcoholic. He of a strep infection at the age of 37 yrs. Mother Additional Family Medical History / Comment(s): Mother was schizophrenic. Medications and Allergies Home Medications Medication Instructions Recorded Confirmed Type Acetaminophen Tab [Tylenol] 650 mg PO Q4H PRN 11/06/20 11/06/20 History Aspirin EC [Ecotrin Low Dose] 81 mg PO DAILY@1200 11/06/20 11/06/20 History Citalopram Hydrobromide [CeleXA] 10 mg PO DAILY@1200 11/06/20 11/06/20 History LORazepam [Ativan] 0.5 mg PO Q4H PRN 11/06/20 11/06/20 History MORPHINE ORAL BRIANNA CONC 20mg/mL 5 mg PO Q4HR PRN 11/06/20 11/06/20 History [Roxanol Oral Soln Conc 20MG/ML] Melatonin 3 mg PO HS@2100 11/06/20 11/06/20 History Allergies Allergy/AdvReac Type Severity Reaction Status Date / Time No Known Allergies Allergy Verified 11/06/20 06:59 Surgical - Exam Vital Signs Temp Pulse Resp BP Pulse Ox 98.0 F 63 16 142/93 97 11/06/20 05:08 11/06/20 05:08 11/06/20 05:08 11/06/20 05:08 11/06/20 05:08 - General well developed, well nourished, no distress - Eyes PERRL - ENT normal pinna - Neck no masses - Respiratory normal expansion - Cardiovascular Rhythm: regular - Abdomen Abdomen: soft, non tender Hernia: inguinal (Large right inguinal hernia with small bowel) Results - Labs 11/06/20 05:42 11/06/20 05:42 Abnormal Lab Results - Last 24 Hours (Table) 11/06/20 11/06/20 Range/Units 05:42 05:42 BUN 24 H (9-20) mg/dL Glucose 109 H (74-99) mg/dL Urine Protein Trace H (Negative) Diabetes panel 11/06/20 Range/Units 05:42 Sodium 139 (137-145) mmol/L Potassium 4.6 (3.5-5.1) mmol/L Chloride 104 (98-107) mmol/L Carbon Dioxide 29 (22-30) mmol/L BUN 24 H (9-20) mg/dL Creatinine 1.09 (0.66-1.25) mg/dL Glucose 109 H (74-99) mg/dL Calcium 9.3 (8.4-10.2) mg/dL AST 44 (17-59) U/L ALT 42 (4-49) U/L Alkaline Phosphatase 90 (38-126) U/L Total Protein 6.9 (6.3-8.2) g/dL Albumin 3.7 (3.5-5.0) g/dL Calcium panel 11/06/20 Range/Units 05:42 Calcium 9.3 (8.4-10.2) mg/dL Phosphorus 2.9 (2.5-4.5) mg/dL Albumin 3.7 (3.5-5.0) g/dL Pituitary panel 11/06/20 Range/Units 05:42 Sodium 139 (137-145) mmol/L Potassium 4.6 (3.5-5.1) mmol/L Chloride 104 (98-107) mmol/L Carbon Dioxide 29 (22-30) mmol/L BUN 24 H (9-20) mg/dL Creatinine 1.09 (0.66-1.25) mg/dL Glucose 109 H (74-99) mg/dL Calcium 9.3 (8.4-10.2) mg/dL Adrenal panel 11/06/20 Range/Units 05:42 Sodium 139 (137-145) mmol/L Potassium 4.6 (3.5-5.1) mmol/L Chloride 104 (98-107) mmol/L Carbon Dioxide 29 (22-30) mmol/L BUN 24 H (9-20) mg/dL Creatinine 1.09 (0.66-1.25) mg/dL Glucose 109 H (74-99) mg/dL Calcium 9.3 (8.4-10.2) mg/dL Total Bilirubin 0.6 (0.2-1.3) mg/dL AST 44 (17-59) U/L ALT 42 (4-49) U/L Alkaline Phosphatase 90 (38-126) U/L Total Protein 6.9 (6.3-8.2) g/dL Albumin 3.7 (3.5-5.0) g/dL Assessment and Plan Assessment: Large right internal hernia. Patient will undergo hernia repair when medically stable.
--- NOTE | 2020-11-06 18:02 | P.CNOR ---
<Faheem Edmond - Last Filed: 11/06/20 18:00> History of Present Illness - [facility] Consult date: 11/06/20 Requesting physician: Gm Mckinnon Consult reason: fracture (T12 compression fracture) History of present illness: Patient is a pleasant 89-year-old male with a history of dementia who is seen and the bedside for further evaluation after CT imaging showed evidence of an acute T12 compression fracture deformity. He was brought to the emergency department for further evaluation of a hernia. CT of the abdomen and pelvis was performed for further evaluation of his hernia. Imaging did show evidence of a large right inguinal hernia with small bowel. He is been seen by general surgery. Nursing states they are planning for surgical intervention for his hernia when medically stable. Nursing states patient was brought to the emergency department from [facility]. He did sustain a fall while there. Patient is a very poor historian. He is not currently complaining of any significant back pain although he does have exacerbation back pain while trying to roll over in bed. He is able to perform active range of motion his bilateral lower extremities significant difficulty. Patient's other medical diagnoses include history of DVT. Past Medical History Past Medical History: CVA/TIA, Dementia, Deep Vein Thrombosis (DVT), GERD/Reflux, Hyperlipidemia, Memory Impairment, Prostate Disorder, Thyroid Disorder Additional Past Medical History / Comment(s): Vascular dementia, DVT R leg, TIAs, tested covid + 08/30/20 asymptomatic, BPH, hypothyroid, numbness/tingling bottom of feet, diverticular disease, vitamin D deficiency, insomnia, weakness, FALLS frequently. Pt was in hospice but was taken out of hospice yesterday so he could be evaluated for R groin hernia/pain. History of Any Multi-Drug Resistant Organisms: None Reported Past Surgical History: No Surgical Hx Reported Additional Past Surgical History / Comment(s): Reattachment edwin, 2013 cardiac cath, colonoscopy. Past Anesthesia/Blood Transfusion Reactions: No Reported Reaction, Motion Sickness Additional Past Anesthesia/Blood Transfusion Reaction / Comm: no history of transfusion. Smoking Status: Former smoker - Past Family History Father Additional Family Medical History / Comment(s): Father was an alcoholic. He di ed of a strep infection at the age of 37 yrs. Mother Additional Family Medical History / Comment(s): Mother was schizophrenic. Medications and Allergies Home Medications Medication Instructions Recorded Confirmed Type Acetaminophen Tab [Tylenol] 650 mg PO Q4H PRN 11/06/20 11/06/20 History Aspirin EC [Ecotrin Low Dose] 81 mg PO DAILY@1200 11/06/20 11/06/20 History Citalopram Hydrobromide [CeleXA] 10 mg PO DAILY@1200 11/06/20 11/06/20 History LORazepam [Ativan] 0.5 mg PO Q4H PRN 11/06/20 11/06/20 History MORPHINE ORAL BRIANNA CONC 20mg/mL 5 mg PO Q4HR PRN 11/06/20 11/06/20 History [Roxanol Oral Soln Conc 20MG/ML] Melatonin 3 mg PO HS@2100 11/06/20 11/06/20 History Allergies Allergy/AdvReac Type Severity Reaction Status Date / Time No Known Allergies Allergy Verified 11/06/20 06:59 Physical Examination Physical exam: Patient is awake and alert but is not oriented to place Vital signs stable Good chest excursion with deep inspiration and expiration Abdomen soft nontender Examination of radical lumbar spine reveals skin is intact with no abrasions, lacerations, or bruises; no erythema, purulence or signs of infection Increased back pain with rolling over in bed No specific thoracolumbar pain with palpation Dorsiflexion, plantarflexion, and extensor hallucis longus positive sustained bilaterally Lower extremity strength 5/5 bilaterally Patellar reflex 2+ bilaterally No lower extremity hyperreflexia bilaterally Straight leg test negative bilateral lower extremities Negative Lasegue's test bilaterally Patient is able to perform active range of motion bilateral lower extremities independently without difficulty No signs or symptoms of DVT; no calf pain No pain with internal and external rotation of the hips bilaterally Neurovascularly intact Almeida catheter intact Results Pertinent studies: CT the abdomen and pelvis reviewed for orthopedic purposes: Evidence of T12 compression fracture deformity with bowtie shape with approximately 40% height loss; no spinal canal stenosis evident - Labs Labs: Abnormal Lab Results - Last 24 Hours (Table) 11/06/20 11/06/20 Range/Units 05:42 05:42 BUN 24 H (9-20) mg/dL Glucose 109 H (74-99) mg/dL Urine Protein Trace H (Negative) H & H 11/06/20 Range/Units 05:42 Hgb 14.1 (13.0-17.5) gm/dL Hct 42.3 (39.0-53.0) % Result Diagrams: 11/06/20 05:42 11/06/20 05:42 Assessment and Plan Assessment: Assessment: Acute traumatic T12 compression fracture deformity Status post fall Thoracolumbar pain Dementia History DVT Large right inguinal hernia with small bowel (1) Traumatic compression fracture of T12 thoracic vertebra Current Visit: Yes Status: Acute Code(s): S22.080A - WEDGE COMPRESSION FRACTURE OF T11-T12 VERTEBRA, INIT SNOMED Code(s): 727156429 (2) Status post fall Current Visit: Yes Status: Acute Code(s): Z91.81 - HISTORY OF FALLING SNOMED Code(s): 147133126 (3) Thoracolumbar back pain Current Visit: Yes Status: Acute Code(s): M54.5 - LOW BACK PAIN; M54.6 - PAIN IN THORACIC SPINE SNOMED Code(s): 128062101 (4) Dementia Current Visit: Yes Status: Acute Code(s): F03.90 - UNSPECIFIED DEMENTIA WITHOUT BEHAVIORAL DISTURBANCE SNOMED Code(s): 00627251 (5) History of DVT (deep vein thrombosis) Current Visit: Yes Status: Acute Code(s): Z86.718 - PERSONAL HISTORY OF OTHER VENOUS THROMBOSIS AND EMBOLISM SNOMED Code(s): 915277399 (6) Right inguinal hernia Current Visit: Yes Status: Acute Code(s): K40.90 - UNIL INGUINAL HERNIA, W/O OBST OR GANGR, NOT SPCF RECUR SNOMED Code(s): 059693967 Plan: Plan: 1. After reviewing of imaging, physical examination the patient, and further discussion with the patient, we will currently plan to continue with conservative treatment at this time. Reviewing of imaging does show evidence of a T12 compression fracture deformity. Although he is a poor historian and states he is not currently experiencing any significant back pain, he does have increased back pain with rolling over in bed. He also has history of recent fall. It was discussed with the patient we will plan for bracing. A prescription has been written and provided to case management for a Spinomed TLSO brace. Once this brace is delivered and fitted appropriately, patient should wear this brace while sitting upright at greater than 45, during increase activities, during ambulation. Brace is not have to or while lying in bed or while bathing. Following fitting of this brace, patient is clear for discharge from an orthopedic spine standpoint. Following discharge, patient may follow-up with Faheem Edmond PA-C or Dr. Noel Arellano at [facility]. 2. Patient will continue to be seen in exam by other medical providers includi medicine and general surgery; patient is plan to proceed forward with repair of his large right inguinal hernia with all bowel involvement and medically cleared Time with Patient: Greater than 30 (Including obtaining history, physical examination, reviewing of imaging, and dictation.) <Glenna Arellano - Last Filed: 11/07/20 08:45> Physical Examination Osteopathic Statement: *. No significant issues noted on an osteopathic structural exam other than those noted in the History and Physical/Consult. Results - Labs Labs: H & H 11/06/20 Range/Units 05:42 Hgb 14.1 (13.0-17.5) gm/dL Hct 42.3 (39.0-53.0) % Result Diagrams: 11/06/20 05:42 11/06/20 05:42 Assessment and Plan Plan: The case is reviewed and I reviewed the images as well. I agree with the above to place patient in a spinal bed TLSO brace. He should continue with conservative treatment for his spine. He may continue with other workup and management in terms of his other medical and surgical issues. He will likely need a TLSO brace over the next 2-3 months to allow appropriate fracture healing. May ambulate with the brace intact. He may remove the brace while in bed. It is okay for him to base without the brace on. It is okay for him to undergo his abdominal surgery from a spine standpoint. He should plan on gentle positioning and transfers to help protect his back but it is okay for him to lay flat and log roll and for appropriate positioning for abdominal surgical intervention if necessary.
--- NOTE | 2020-11-06 19:07 | XR ---
"EXAMINATION TYPE: XR lumbosacral spine min 4V DATE OF EXAM: 11/06/2020 COMPARISON: NONE HISTORY: Back pain TECHNIQUE: 5 views FINDINGS: The lumbar vertebra have normal alignment. There is some narrowing at L4-5 and L5-S1 discs. There is no | lumbar compression fracture. Posterior elements are intact. There is compression fract ure of T12 vertebral body with 80% anterior wedging. Sacroiliac joints are intact. IMPRESSION: No acute abnormality of the lumbar spine. There is T12 compression fracture that appears new compared to the chest x-ray of 10/13/2018."
[2020-11-06] MEDS: MELATONIN 3 MG TABLET PO SCH (20:06)
--- NOTE | 2020-11-06 20:14 | P.HPIM ---
History of Present Illness H&P Date: 11/06/20 Chief Complaint: Low back pain History of presenting complaint: This is a pleasant 89-year-old patient was chronic stable medical conditions include dementia, GERD, hyperlipidemia, prostate and thyroid disorder, BPH, peripheral neuropathy, diverticulosis, insomnia, falls frequently. Patient presented after taking a fall. 2 days ago. Has been having lower back pain. Patient was in hospice until yesterday and was taken out of hospital yesterday for further evaluation. Also right groin hernia was noticed. No pain. Appetite is fair. No nausea vomiting. No fever no chills. He lives at [facility]. He does use a walker but forgets sometimes. His daughter and son are POA . Patient is somewhat limited historian because of his dementia. But can answer simple questions. Denies any chest pain or shortness of breath. Review of systems: GEN.: None EYES: None HEENT: None NECK: None RESPIRATORY: None CARDIOVASCULAR: None GASTROINTESTINAL: None GENITOURINARY: As above MUSCULOSKELETAL: Chronic low back pain LYMPHATICS: None HEMATOLOGICAL: None PSYCHIATRY: Forgetful NEUROLOGICAL: Does fall, no focal symptoms Past medical history to include: TIA, dementia, DVT, GERD, hyperlipidemia, memory impairment, prostatitis, thyroid disorder, DVT in the right leg, August 2020 had COVID positive, asymptomatic, BPH, peripheral neuropathy, diverticulosis, vitamin D deficiency, insomnia, was in the hospice Social history: Currently at [facility] in the [place]. Does have a walker. As a legal guardian and his son and his daughter. Patient smoked from 1950 05/05/1964. Also history of alcohol abuse but none since 2016. Physical examination: VITAL SIGNS: 98, 63, 16, 142/93, 97% room air GENERAL: BMI 25.8, sitting up in bed, comfortable. EYES: Pupils equal. Conjunctiva normal. HEENT: External appearance of nose and ears normal, oral cavity grossly normal. NECK: JVD not raised; masses not palpable. HEART: First and second heart sounds are normal; no edema. LUNGS:[ Respiratory rate normal; fair air entry. ABDOMEN: Soft, nontender, liver spleen not palpable, no masses palpable. Right inguinal hernia, nontender PSYCH: Patient is able to answer simple questionsl. MUSCULAR skeletal: Able to raise both legs. About 30. No localized tenderness over the spine. NEUROLOGICAL: Cranial nerves grossly intact; no facial asymmetry, power and sensation grossly intact. LYMPHATICS: No lymph nodes palpable in the axilla and neck INVESTIGATIONS, reviewed in the clinical context: White count 10.3 hemoglobin 14.1 and platelets 271 potassium 4.6 creatinine 1.09 Coronavirus [ECR]-not detected Computed tomography scan of the abdomen pelvis with contrast-multiple sigmoid colon diverticula. Right inguinal hernia. T12 compression fracture-possible acute. 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 Plan: Consultation was made to general surgery and orthopedics. Lumbar spine x-ray was ordered. We will add Lovenox for DVT prophylaxis. Cardiovascular preop assessment. Patient has a low risk surgery. Given patient's age and multiple comorbidities patient has a high risk of infections. Patient denies any active cardiac or pulmonary symptoms. Patient has a limited exercise tolerance. We will do a baseline EKG and check chest x-ray. No need for any further investigations. Patient otherwise medically stable to proceed with surgery. Past Medical History Past Medical History: CVA/TIA, Dementia, Deep Vein Thrombosis (DVT), GERD/Reflux, Hyperlipidemia, Memory Impairment, Prostate Disorder, Thyroid Disorder Additional Past Medical History / Comment(s): Vascular dementia, DVT R leg, TIAs, tested covid + 08/30/20 asymptomatic, BPH, hypothyroid, numbness/tingling bottom of feet, diverticular disease, vitamin D deficiency, insomnia, weakness, FALLS frequently. Pt was in hospice but was taken out of hospice yesterday so he could be evaluated for R groin hernia/pain. History of Any Multi-Drug Resistant Organisms: None Reported Past Surgical History: No Surgical Hx Reported Additional Past Surgical History / Comment(s): Reattachment finger, 2012 cardiac cath, colonoscopy. Past Anesthesia/Blood Transfusion Reactions: No Reported Reaction, Motion Sickness Additional Past Anesthesia/Blood Transfusion Reaction / Comment(s): no history of transfusion. Smoking Status: Former smoker - Past Family History Father Additional Family Medical History / Comment(s): Father was an alcoholic. He of a strep infection at the age of 37 yrs. Mother Additional Family Medical History / Comment(s): Mother was schizophrenic. Medications and Allergies Home Medications Medication Instructions Recorded Confirmed Type Acetaminophen Tab [Tylenol] 650 mg PO Q4H PRN 11/06/20 11/06/20 History Aspirin EC [Ecotrin Low Dose] 81 mg PO DAILY@1200 11/06/20 11/06/20 History Citalopram Hydrobromide [CeleXA] 10 mg PO DAILY@1200 11/06/20 11/06/20 History LORazepam [Ativan] 0.5 mg PO Q4H PRN 11/06/20 11/06/20 History MORPHINE ORAL BRIANNA CONC 20mg/mL 5 mg PO Q4HR PRN 11/06/20 11/06/20 History [Roxanol Oral Soln Conc 20MG/ML] Melatonin 3 mg PO HS@2100 11/06/20 11/06/20 History Allergies Allergy/AdvReac Type Severity Reaction Status Date / Time No Known Allergies Allergy Verified 11/06/20 06:59 Physical Exam Vitals: Vital Signs Temp Pulse Resp BP Pulse Ox 11/06/20 09:22 98.0 F 68 16 138/88 98 11/06/20 05:08 98.0 F 63 16 142/93 97 Intake and Output 11/05/20 11/06/20 11/06/20 22:59 06:59 14:59 Other: Weight 81.647 kg 81.647 kg Results CBC & Chem 7: 11/06/20 05:42 11/06/20 05:42 Labs: Abnormal Lab Results - Last 24 Hours (Table) 11/06/20 11/06/20 Range/Units 05:42 05:42 BUN 24 H (9-20) mg/dL Glucose 109 H (74-99) mg/dL Urine Protein Trace H (Negative)
[2020-11-06] MEDS: ENOXAPARIN 40 MG/0.4 ML SYRINGE SQ SCH (20:21)
--- NOTE | 2020-11-06 21:19 | XR ---
EXAMINATION TYPE: XR chest 1V portable DATE OF EXAM: 11/06/2020 COMPARISON: 10/13/2018 HISTORY: Altered mental status TECHNIQUE: Shahnaz view FINDINGS: There is general coarsening interstitial density in the lungs. Heart is slightly enlarged. There is no heart failure. There is poor inspiration. Bony thorax appears intact. IMPRESSION: Pulmonary interstitial fibrosis. Poor inspiration. No obvious heart failure. Heart and jamee ngs not significantly different than old exam.
[2020-11-07] MEDS: ENOXAPARIN 40 MG/0.4 ML SYRINGE SQ SCH (07:44)
[2020-11-07] MEDS: SODIUM CHLORIDE 0.9% 1,000 ML IV SCH ×2 (08:17→21:40)
--- NOTE | 2020-11-07 09:17 | P.PN ---
Progress Note - Text Progress Note Date: 11/07/20 Patient is seen and examined today at bedside. He is disoriented today and he is not really communicating. He does not seem to complain of pain. He is not localizing any specific pain but does grimace somewhat when he tries to roll around in bed. Physical Exam Afebrile with stable vital signs Abdomen is soft nontender. Chest has good excursion deep and space expiration Extremities have appropriate voluntary motion Calves and thighs were soft nontender without evidence of DVT. Assessment/Plan T12 acute compression fracture, osteoporotic Dementia Abdominal hernia The patient has acute compression deformity at T12 without any apparent neurologic compromise. The fracture pattern and overall is reasonably stable and I think that he can do well with conservative bracing for his fracture. We have ordered a TLSO brace for him to be worn whenever he is out of bed. He may remove it for bathing. I do not have surgical plans for his spine at this point. He is being treated for his abdominal hernia. It is okay to proceed with treatment for his abdominal hernia as appropriate from his spine standpoint. There is some consideration for surgical intervention for his abdomen and it would be okay from a spine standpoint for him to be flat, log rolled, and transferred as necessary for positioning for surgical intervention. He will likely need his TLSO brace for his T12 fracture over the next 2-3 months which she should use whenever he is out of bed.
[2020-11-07] MEDS: MORPHINE SULFATE 4 MG/ML SYRINGE IV PRN (09:25)
[2020-11-07] MEDS ORDERED: MIDAZOLAM 2 MG/2 ML VIAL IV ONE (10:15)
[2020-11-07] MEDS ORDERED: HEPARIN SODIUM,PORCINE 5,000 UNIT/ML 1 ML VIAL ONE (10:18)
[2020-11-07] MEDS ORDERED: ONDANSETRON 4 MG/2 ML VIAL ONE (10:18)
[2020-11-07] MEDS ORDERED: LACTATED RINGERS 1,000 ML IV ONE ×2 (10:24→12:21)
[2020-11-07] MEDS ORDERED: HEPARIN SODIUM,PORCINE 5,000 UNIT/ML 1 ML VIAL SQ ONE (10:25)
[2020-11-07] MEDS ORDERED: DEXAMETHASONE SOD PHOSPHATE 4 MG/ML 1 ML VIAL IV ONE (10:25)
[2020-11-07] MEDS ORDERED: GLYCOPYRROLATE 0.2 MG/ML 2 ML VIAL ONE (11:09)
[2020-11-07] MEDS ORDERED: SUCCINYLCHOLINE CHLORIDE 100 MG/5 ML SYR IV ONE (11:09)
[2020-11-07] MEDS ORDERED: PROPOFOL 10 MG/ML 20 ML VIAL IV ONE (11:09)
[2020-11-07] MEDS ORDERED: NEOSTIGMINE 1 MG/ML 10 ML VIAL ONE (11:09)
[2020-11-07] MEDS ORDERED: fentaNYL (PF) 50 MCG/ML 2 ML AMP ONE (11:09)
[2020-11-07] MEDS ORDERED: LIDOCAINE 1% INJ 10MG/ML (20 ML MDV) ONE (11:09)
[2020-11-07] MEDS ORDERED: ROCURONIUM 10 MG/ML (10 ML VIAL) IV ONE (11:09)
[2020-11-07] MEDS: ASPIRIN 81 MG PO SCH (11:29)
[2020-11-07] MEDS: CITALOPRAM HYDROBROMIDE 10 MG TAB PO SCH (11:29)
[2020-11-07] MEDS ORDERED: BUPIVACAINE (PF) 0.25% 30 ML VIAL SQ ONE ×2 (11:36)
[2020-11-07] MEDS ORDERED: HYDROmorphone 1 MG/ML 1 ML SYRINGE IVP PRN (11:55)
--- NOTE | 2020-11-07 11:55 | P.OP ---
Date of Procedure: 11/07/20 Preoperative Diagnosis: right incarceratedinguinal hernia Postoperative Diagnosis: incarcerated right inguinal hernia Procedure(s) Performed: Right inguinal hernia repair Surgeon: Ronnie Ramirez Estimated Blood Loss (ml): 5 Pathology: none sent Condition: stable Disposition: PACU Description of Procedure: DESCRIPTION OF PROCEDURE: The patient was placed in the supine position after receiving adequate anesthesia. Patients groin was prepped and draped in the usual sterile fashion. A standard hernia incision was made and the subcutaneous tissues were divided with electrocautery. The fascia of the external oblique was exposed. A balta the fascia was made with #15 blade. The fascia was then opened with pair of Metzenbaum scissors. A Weitlaner retractor was placed in the wound and the cord structures were grasped and dissected free from the inguinal canal. A rubber Alto[place] drain was placed around the cord structures. The hernial sac was seen on the anterior-medial portion of the cord and this was dissected free from the cord. The hernia sac was then invaginated to the peritoneal cavity. Using blunt finger dissection, the preperitoneal space was dissected and then the Prolene hernial mesh plug was placed into the prepared space. The inferior leaf was expanded. The superior leaf was secured to the pubic tubercle using 2-0 Prolene suture. The lateral portion of the superior leaf was incised and cords tied and secured to the transversalis fascia using 2-0 Prolene suture. Fascia of the external oblique was then closed using #0 Vicryl suture. The Altoona drain was removed. The Scarpas fascia was then closed with 3-0 Vicryl suture and skin was closed with emily. The patient tolerated the procedure well.
[2020-11-07] MEDS ORDERED: HYDROmorphone 0.2 MG/1 ML SYRINGE IVP ONE (12:20)
--- NOTE | 2020-11-07 19:35 | P.PN ---
Progress Note - Text Progress Note Date: 11/07/20 Chief Complaint: Low back pain History of presenting complaint: This is a pleasant 89-year-old patient was chronic stable medical conditions include dementia, GERD, hyperlipidemia, prostate and thyroid disorder, BPH, peripheral neuropathy, diverticulosis, insomnia, falls frequently. Patient presented after taking a fall. 2 days ago. Has been having lower back pain. Patient was in hospice until yesterday and was taken out of hospital yesterday for further evaluation. Also right groin hernia was noticed. No pain. Appetite is fair. No nausea vomiting. No fever no chills. He lives at [facility]. He does use a walker but forgets sometimes. His daughter and son are POA . Patient is somewhat limited historian because of his dementia. But can answer simple questions. Denies any chest pain or shortness of breath. Admitted with acute T12 compression fracture, right inguinal hernia. Patient been ordered a brace for his compression fracture. Today-patient had right inguinal hernia repair. Postprocedure patient was somewhat delirious agitated. For his safety patient was put temporarily in soft restraints. When I came to see the patient he was rather sleepy tired. Review of systems: Could not be done as patient rather tight sleepy Active Medications Acetaminophen (Acetaminophen Tab 325 Mg Tab) 650 mg PO Q4H PRN PRN Reason: Pain or Fever > 100.5 Aspirin (Aspirin 81 Mg) 81 mg PO DAILY@1200 [facility] Last Admin: 11/07/20 11:29 Dose: Not Given Documented by: Citalopram Hydrobromide (Citalopram Hydrobromide 10 Mg Tab) 10 mg PO DAILY@1200 [facility] Last Admin: 11/07/20 11:29 Dose: Not Given Documented by: Enoxaparin Sodium (Enoxaparin 40 Mg/0.4 Ml Syringe) 40 mg SQ DAILY [facility] Last Admin: 11/07/20 07:44 Dose: Not Given Documented by: Hydromorphone HCl (Hydromorphone 1 Mg/Ml 1 Ml Syringe) 1 mg IVP Q1HR PRN PRN Reason: Severe Pain Sodium Chloride (Saline 0.9%) 1,000 mls @ 80 mls/hr IV .[id number] [facility] Last Admin: 11/07/20 08:17 Dose: Not Given Documented by: Lorazepam (Lorazepam 0.5 Mg Tab) 0.5 mg PO Q4H PRN PRN Reason: AGRESSION Last Admin: 11/06/20 20:15 Dose: 0.5 mg Documented by: Melatonin (Melatonin 3 Mg Tablet) 3 mg PO HS@2100 [facility] Last Admin: 11/06/20 20:06 Dose: 3 mg Documented by: Morphine Sulfate (Morphine Sulfate 4 Mg/Ml Syringe) 4 mg IV Q4HR PRN PRN Reason: Severe Pain Last Admin: 11/07/20 09:25 Dose: 4 mg Documented by: Morphine Sulfate (Morphine Conc Soln 10mg/0.5ml Oral Syrg) 5 mg PO Q4HR PRN PRN Reason: Pain Naloxone HCl (Naloxone 0.4 Mg/Ml 1 Ml Vial) 0.2 mg IV Q2M PRN PRN Reason: Opioid Reversal Past medical history to include: TIA, dementia, DVT, GERD, hyperlipidemia, memory impairment, prostatitis, thyroid disorder, DVT in the right leg, August 2020 had COVID positive, asymptomatic, BPH, peripheral neuropathy, diverticulosis, vitamin D deficiency, insomnia, was in the hospice Social history: Currently at [facility] in [facility]. Does have a walker. As a legal guardian and his son and his daughter. Patient smoked from 1950 05/05/1964. Also history of alcohol abuse but none since 2016. Physical examination: VITAL SIGNS: 96.8, 99, 18, 137/82, 92% on 3 L GENERAL: BMI 25.8, laying in bed, sleepy EYES: Pupils equal. Conjunctiva normal. NECK: JVD not raised; masses not palpable. HEART: First and second heart sounds are normal; no edema. LUNGS:[ Respiratory rate normal; fair air entry. ABDOMEN: Soft, nontender, liver spleen not palpable, no masses palpable. Dressing over the right hernia site incredible PSYCH: Unable to assess INVESTIGATIONS, reviewed in the clinical context: White count 10.3 hemoglobin 14.1 and platelets 271 potassium 4.6 creatinine 1.09 Coronavirus [ECR]-not detected Computed tomography scan of the abdomen pelvis with contrast-multiple sigmoid colon diverticula. Right inguinal hernia. T12 compression fracture-possible acute. Some other nonspecific findings Assessment: -Right inguinal hernia, incarcerated per surgery. Status post repair on November 07 -Acute T12 compression fracture-to be managed conservatively. Brace ordered. 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 Plan: I'll a postop orders per Dr. Ramirez. Pain control in place. IV fluids. Patient should be able to be return tomorrow.
[2020-11-07] MEDS: MELATONIN 3 MG TABLET PO SCH (21:37)
[2020-11-08] MEDS: MORPHINE SULFATE 4 MG/ML SYRINGE IV PRN (01:50)
[2020-11-08 07:23] VITALS: PULSE 82
[2020-11-08] MEDS: ENOXAPARIN 40 MG/0.4 ML SYRINGE SQ SCH (09:30)
[2020-11-08] MEDS: SODIUM CHLORIDE 0.9% 1,000 ML IV SCH (09:37)
--- NOTE | 2020-11-08 10:41 | P.PN ---
Subjective Progress Note Date: 11/08/20 CHIEF COMPLAINT: Right inguinal hernia HISTORY OF PRESENT ILLNESS: Patient is status post right incarcerated inguinal hernia repair. Patient is confused. No evidence of pain. He is trying to pull out his Almeida catheter. Per nursing he did pull out his IV this morning. He is on 2 L satting at 93%. Tolerating regular diet. PHYSICAL EXAM: VITAL SIGNS: Reviewed. GENERAL: Well-developed in no acute distress. HEENT: No sclera icterus. Extraocular movements grossly intact. Moist buccal mucosa. Head is atraumatic, normocephalic. ABDOMEN: Soft. Nondistended. Nontender. Right groin incision site clean dry and intact NEUROLOGIC: Confused ASSESSMENT: 1. Right incarcerated hernia status post repair PLAN: -Continue regular diet -Ordered incentive spirometer -Continue supportive care Physician Payroll Master note has been reviewed by physician. Signing provider agrees with the documented findings, assessment, and plan of care. Objective - Vital Signs Vital signs: Vital Signs Temp 99.0 F 11/08/20 07:19 Pulse 82 11/08/20 07:19 Resp 14 11/08/20 10:13 BP 137/79 11/08/20 07:19 Pulse Ox 93 L 11/08/20 08:51 Intake & Output 11/07/20 11/08/20 11/08/20 18:59 06:59 18:59 Intake Total 650 Output Total 510 600 Balance 140 -600 Weight 81.647 kg Intake: IV 650 Output: Urine 500 600 Estimated Blood Loss 10 Other: Voiding Method Indwelling Catheter Indwelling Catheter Indwelling Catheter - Labs CBC & Chem 7: 11/06/20 05:42 11/06/20 05:42
[2020-11-08] MEDS: CITALOPRAM HYDROBROMIDE 10 MG TAB PO SCH (12:25)
[2020-11-08] MEDS: ASPIRIN 81 MG PO SCH (12:25)
[2020-11-08 13:20] VITALS: BP 132/73; RESP 23; TEMP 98.2
--- NOTE | 2020-11-08 14:09 | P.DS ---
Providers Date of admission: 11/06/20 08:19 Expected date of discharge: 11/08/20 Attending physician: Joo Morris Consults: 11/06/20 07:25 Consult Physician Routine Consulting Provider: Glenna Arellano Consult Reason/Comments: TspineFx Do you want consulting provider notified?: Yes 11/06/20 08:21 Consult Physician Routine Consulting Provider: Ronnie Ramirez Consult Reason/Comments: inguinal hernia Do you want consulting provider notified?: Yes Primary care physician: [facility] Course: Chief Complaint: Low back pain History of presenting complaint: This is a pleasant 89-year-old patient was chronic stable medical conditions include dementia, GERD, hyperlipidemia, prostate and thyroid disorder, BPH, peripheral neuropathy, diverticulosis, insomnia, falls frequently. Patient presented after taking a fall. 2 days ago. Has been having lower back pain. Patient was in hospice until yesterday and was taken out of hospice yesterday for further evaluation. Also right groin hernia was noticed. No pain. Appetite is fair. No nausea vomiting. No fever no chills. He lives at [facility]. He does use a walker but forgets sometimes. His daughter and son are POA . Patient is somewhat limited historian because of his dementia. But can answer simple questions. Denies any chest pain or shortness of breath. Admitted with acute T12 compression fracture, right inguinal hernia. Seen by orthopedics and they ordered a brace for his compression fracture. November 07: had right inguinal hernia repair. Today-doing better. Laying in bed. 8 about 75% of his lunch. Comfortable. I spoke to patient's daughter Kathy over the phone. Questions were answered. Patient will return to [facility] going back under hospice. Discussed with nurse party planner. Discussion and discharge planning more than 35 minutes Consultation: Dr. Ramirez-general surgery Dr. Aaron Arellano - orthopedic spine Past medical history to include: TIA, dementia, DVT, GERD, hyperlipidemia, memory impairment, prostatitis, thyroid disorder, DVT in the right leg, August 2020 had COVID positive, asymptomatic, BPH, peripheral neuropathy, diverticulosis, vitamin D deficiency, insomnia, was in the hospice Social history: Currently at [facility] in the [place]. Does have a walker. As a legal guardian and his son and his daughter. Patient smoked from [birth year]/05/1963. Also history of alcohol abuse but none since 2017. Physical examination: VITAL SIGNS: 98.2, 23, 132.73, 16, 93% on 2 L GENERAL: In bed, awake, comfortable EYES: Pupils equal. Conjunctiva normal. NECK: JVD not raised; masses not palpable. HEART: First and second heart sounds are normal; no edema. LUNGS:[ Respiratory rate normal; decreased breath sounds. ABDOMEN: Soft, nontender, liver spleen not palpable, no masses palpable. Right groin incision healing well PSYCH: Answering simple questions INVESTIGATIONS, reviewed in the clinical context: White count 10.3 hemoglobin 14.1 and platelets 271 potassium 4.6 creatinine 1.09 Coronavirus [ECR]-not detected Computed tomography scan of the abdomen pelvis with contrast-multiple sigmoid colon diverticula. Right inguinal hernia. T12 compression fracture-possible acute. Some other nonspecific findings Assessment: -Right inguinal hernia, incarcerated - Status post repair on November 07 -Acute T12 compression fracture-to be managed conservatively. Brace ordered. 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 Return to [facility] under hospice. Disposition: [facility] Patient Condition at Discharge: Undetermined Plan - Discharge Summary Discharge Rx Participant: No New Discharge Prescriptions: Continue Acetaminophen Tab [Tylenol] 650 mg PO Q4H PRN PRN Reason: Pain Or Fever > 100.5 Melatonin 3 mg PO HS@2100 Citalopram Hydrobromide [CeleXA] 10 mg PO DAILY@1200 Aspirin EC [Ecotrin Low Dose] 81 mg PO DAILY@1200 LORazepam [Ativan] 0.5 mg PO Q4H PRN #18 tab PRN Reason: AGRESSION MORPHINE ORAL BRIANNA CONC 20mg/mL [Roxanol Oral Soln Conc 20MG/ML] 5 mg PO Q4HR PRN #30 bottle PRN Reason: Pain Discharge Medication List Acetaminophen Tab [Tylenol] 650 mg PO Q4H PRN 11/06/20 [History] Aspirin EC [Ecotrin Low Dose] 81 mg PO DAILY@1200 11/06/20 [History] Citalopram Hydrobromide [CeleXA] 10 mg PO DAILY@1200 11/06/20 [History] Melatonin 3 mg PO HS@2100 11/06/20 [History] LORazepam [Ativan] 0.5 mg PO Q4H PRN #18 tab 11/08/20 [Rx] MORPHINE ORAL BRIANNA CONC 20mg/mL [Roxanol Oral Soln Conc 20MG/ML] 5 mg PO Q4HR PRN #30 bottle 11/08/20 [Rx] Follow up Appointment(s)/Referral(s): Ganesh Levi MD [Primary Care Provider] - 1-2 days Faheem Edmond PAC [PHYSICIAN HEALTHCARE APPLICATIONS ANALYST] - 2 Weeks (Patient may follow-up with Faheem Edmond PA-C or Dr. Noel Arellano at [facility] in 2-3 weeks following discharge. Need a Referral from PCP.) Jarad &Destiny [NON-STAFF] - (Please call David if you have questions regarding the TLSO brace. ) Ronnie Ramirez MD [STAFF PHYSICIAN] - 1 Week Activity/Diet/Wound Care/Special Instructions: 1. Patient may wear Spinomed TLSO brace for comfort and support while sitting upright at greater than 45, while working with therapy, and while ambulating; patient does not have to wear the brace while lying in bed or bathing 2. Patient should avoid excessive bending, twisting, and lifting; no lifting greater than 10 pounds back to [facility]: [phone]
== END 2020-11-08 15:07 ==
LOC: EC 05:05 → 4SSUR 08:19
PROVIDERS: ADMIT Hospitalist; ATTEND Hospitalist
DX: K40.90 Unilateral inguinal hernia, without obstruction or gangrene, not specified as recurrent (principal); S22.080A Wedge compression fracture of T11-T12 vertebra, initial encounter for closed fracture; G30.1 Alzheimer's disease with late onset; F02.80 Dementia in other diseases classified elsewhere, unspecified severity, without behavioral disturbance, psychotic disturbance, mood disturbance, and anxiety; F01.50 Vascular dementia, unspecified severity, without behavioral disturbance, psychotic disturbance, mood disturbance, and anxiety; G89.29 Other chronic pain; M54.5 Low back pain; K57.30 Diverticulosis of large intestine without perforation or abscess without bleeding; E03.9 Hypothyroidism, unspecified; E78.5 Hyperlipidemia, unspecified; F51.04 Psychophysiologic insomnia; G62.9 Polyneuropathy, unspecified; K21.9 Gastro-esophageal reflux disease without esophagitis; N40.0 Benign prostatic hyperplasia without lower urinary tract symptoms; E55.9 Vitamin D deficiency, unspecified; M19.91 Primary osteoarthritis, unspecified site; M81.0 Age-related osteoporosis without current pathological fracture; R29.6 Repeated falls; R26.9 Unspecified abnormalities of gait and mobility; K44.9 Diaphragmatic hernia without obstruction or gangrene; W19.XXXA Unspecified fall, initial encounter; Y92.129 Unspecified place in nursing home as the place of occurrence of the external cause; Z66 Do not resuscitate; Z79.82 Long term (current) use of aspirin; Z79.899 Other long term (current) drug therapy; Z79.891 Long term (current) use of opiate analgesic; Z86.718 Personal history of other venous thrombosis and embolism; Z86.73 Personal history of transient ischemic attack (TIA), and cerebral infarction without residual deficits; Z87.891 Personal history of nicotine dependence; Z91.81 History of falling; Z86.16 Personal history of COVID-19; Z89.029 Acquired absence of unspecified finger(s); Z81.1 Family history of alcohol abuse and dependence; Z81.8 Family history of other mental and behavioral disorders; Z83.1 Family history of other infectious and parasitic diseases
CPT/HCPCS: 96376 ×2; 96361 ×2; 96374; 99285; 36415; 93005; 80053; 82150; 83690; 83735; 84100; 85025; 81003; 87635; 72110; 71045; 74177; 49507; G0378 ×3; C1781; J2250; J2270 ×3; J1644; J1100; J2710; J0690; J2405; J2001; J1650; J3010; J1170 ×2; J0330; J2704; Q9967

== ENCOUNTER 2020-11-13 06:25 | Emergency (ER) | payer MEDICARE, OTHER ==
[2020-11-13 06:38] VITALS: RESP 18; TEMP 98
--- NOTE | 2020-11-13 07:15 | XR ---
EXAM: XR Lumbosacral Spine, 2 or 3 Views CLINICAL HISTORY: ITS.REASON XR Reason: prior fracture TECHNIQUE: Frontal and lateral views of the lumbar spine and sacrum. COMPARISON: 11/06/2020 FINDINGS: Vertebrae: Compared to 11/06/2020, new irregularity of the anterior endplate of the L3 vertebral body. No significant loss of vertebral body height at L3. No retropulsion of the posterior endplate. Advanced facet arthropathy of the lower lumbar spine. Multilevel degenerative disc disease, most prominent at L4/L5 and L5/S1. Sacrum/coccyx: Unremarkable as visualized. No acute fracture. Disc spaces: No acute findings. No significant narrowing. Soft tissues: Unremarkable. IMPRESSION: 1. Compared to 11/06/2020, new irregularity of the anterior endplate of the L3 vertebral body which may be due to new compression fracture. 2. No spondylolisthesis. Degenerative disc disease of the lower lumbar spine, unchanged from prior.
[2020-11-13 07:17] VITALS: BP 160/98
--- NOTE | 2020-11-13 07:18 | XR ---
EXAM: XR Chest, 1 View CLINICAL HISTORY: ITS.REASON XR Reason: fall TECHNIQUE: Frontal view of the chest. COMPARISON: 11/06/2020 FINDINGS: Lungs: No consolidation. Unchanged mild peripheral reticulation. Pleural space: No pleural effusions. No pneumothorax. Heart: Unchanged cardiomegaly. Mediastinum: Unremarkable. Bones/joints: Unremarkable. No acute fractures. IMPRESSION: No acute pulmonary process.
[2020-11-13 07:19] VITALS: PULSE 73
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
--- NOTE | 2020-11-13 07:26 | XR ---
EXAM: XR Pelvis, 1 or 2 Views CLINICAL HISTORY: ITS.REASON XR Reason: fall TECHNIQUE: Frontal view of the pelvis. COMPARISON: none available FINDINGS: Bones/joints: Unremarkable. No acute fracture. No dislocation. Soft tissues: Unremarkable. Phleobliths in the pelvis. Degenerative disc disease of the lower lumbar spine. IMPRESSION: Normal pelvis x-ray.
== END 2020-11-13 07:45 | disposition home or self-care (01) ==
LOC: EC 06:25 → EEVIPCON 06:25 → EC 07:45
DX: Z04.3 Encounter for examination and observation following other accident (principal); R58 Hemorrhage, not elsewhere classified; Z79.899 Other long term (current) drug therapy; Z79.890 Hormone replacement therapy; Z79.82 Long term (current) use of aspirin; Z86.718 Personal history of other venous thrombosis and embolism; Z66 Do not resuscitate
CPT/HCPCS: 71045; 72100; 72170; 99283